=== PATIENT | male | born 1945 | race Caucasian/White ===

== ENCOUNTER → 2016-06-20 | Outpatient (CLI) | payer MEDICARE, OTHER ==
[~2016-06-20] MED LIST: ADVAIR 250-501 EACH IH; ALBUTEROL 0.5ML INH; ALBUTEROL17 GM INH; ALTOPREV40 MG PO; ATENOLOL25 MG PO; AZITHROMYCIN250 MG PO; BAYER ASPIRIN325 M1 PO; COATED ASPIRIN325 M1 PO; COMBIVENT MININEB INH; COMBIVENT U/D3 M2 INH; DALIRESP500 MCG PO; DOXYCYCLINE HY100 M3 PO; FAMOTIDINE PO; IMDUR-ER60 M1 PO; LEVAQUIN PO; LISINOPRIL5 MG PO; MEVACOR PO; NITROGYLCERIN SUBLINGUAL; PREDNISONE PO; PREDNISONE10 MG PO; PRINIVIL5 MG PO; PROAIR HFA8.5 GM IH; PROAIR HFA8.5 GM INH; SPIRIVA18 MCG INH; SYMBICORT INH; SYNTHROID0.1 MG PO; TENORMIN25 M1 PO; THIAMINE HCL100 M1 PO; VIBRAMYCIN100 M1 PO; ZESTRIL5 MG PO; ZITHROMAX PO
--- NOTE | ~2016-06-20 | MR113 ---
[facility] A Service of [facility] & [facility] RADIOLOGY TEXT RESULTS PATIENT: VIVIENNE DOWNEY LOCATION: [facility] : 47 UNIT #: [id number] AGE: [address]: Quique Lainez MD SEX: M ORDER DR: [id number] [facility] [address] [place], [place] [address] [id number] O MR#: [id number] Acc #: [id number] NAME: VIVIENNE DOWNEY. : 1945 SEX: M STUDY DATE/TIME: 06/20/2016 11:27 UNIT: [facility] ROOM: STUDY DESCRIPTION: MR Lumbar Wo Contrast Attending Physician: Quique Lainez M.D. Referring Physician: Quique Lainez M.D. Ordering Physician: Quique Lainez M.D. Primary Care Physician: Aurora Amezcua A.P.R.N. MRI CENTER REPORT This report is preliminary unless electronic signature is present. EXAM Lumbar spine MRI without HISTORY Patient has had a few falls in the past couple of months. Complains of bilateral hip pain, leg pain and numbness. No prior surgery. COMMENT MRI of the lumbar spine performed without contrast using routine 1.5-T imaging technique. Mild lower lumbar levoconvex upper lumbar dextroconvex scoliosis. Discs are desiccated in general, and there is multilevel loss of intervertebral disc height, most severe at the L3-L4 level. Marrow endplate degenerative changes most severe also at the L3-L4 level, where they are mixed. Multilevel Schmorl node formation most apparent lower thoracic to upper lumbar spine, and partly seen is anterior wedging of T12. The conus medullaris terminates at upper L2 and is normal. At L1-L2, mild facet degenerative change bilaterally, concentric disc bulge with a superimposed broad posterior desiccated protrusion. Mild effacement of the anterior thecal sac right greater than left, but no significant central canal stenosis. Mild mass effect on the right lateral recess. Mild right inferior foraminal narrowing. At L2-L3, there is mild facet degenerative change bilaterally. Mild broad-based posterior disc bulge more prominent right paramedian to posterolateral location. Mild mass effect on the right lateral recess and anterior thecal sac, but no central canal stenosis. Mild foraminal narrowing bilaterally. At L3-L4, there is moderate facet degenerative change bilaterally, with concentric desiccated disc osteophyte complex. There is mild central STS. [facility] A Service of [facility] & [facility] RADIOLOGY TEXT RESULTS PATIENT: VIVIENNE DOWNEY LOCATION: [facility] : 47 UNIT #: [id number] AGE: [address]: Quique Lainez MD SEX: M ORDER DR: canal stenosis and mass effect on the left greater than right lateral recess. There is approximately moderate left inferior foraminal narrowing. At L4-L5, mild to moderate facet degenerative change bilaterally with some ligamentum flavum thickening. There is a broad-based posterior protrusion with more focal components left paramedian to posterolateral and right posterolateral locations. Mild central canal stenosis with mass effect on the left greater than right lateral recess. Mild to moderate left-sided foraminal narrowing. L5-S1, mild to moderate left, moderate right-sided facet degenerative change, ligamentum flavum thickening with broad-based posterior disc bulge, very mild central canal stenosis and mass effect on the right lateral recess. There is moderate to severe right-sided foraminal narrowing. Mild left-sided foraminal narrowing. Loss of disc height contributes to the right foraminal impingement. I believe this patient has multiple renal cysts which are incompletely seen and characterized, and I would suggest correlation with a renal ultrasound for further assessment. IMPRESSION 1. Multilevel lumbar degenerative changes are detailed above. Canal stenosis present at multiple levels, mild. Foraminal impingement present at multiple levels, most severe on the right side at L5-S1. Please refer to the [id number] description and correlate with symptoms. Chronic mild anterior wedging is likely at T12. Lower lumbar levoconvex upper lumbar dextroconvex scoliosis noted, relatively mild. 2. Partly seen probable renal cyst but I would recommend correlation with renal ultrasound since they are poorly characterized on the MRI. Dictated by... Emily Bear M.D. THIS IS AN ELECTRONICALLY VERIFIED REPORT Emiyl Bear M.D. at 06/22/2016 8:19 AM Shashank TD: 06/21/2016 19:03 JOB #: [id number] MRI CENTER REPORT Page 1 of 1 COPY
== END | disposition home or self-care (01) ==
LOC: CMRI 10:44
DX: M51.36 Other intervertebral disc degeneration, lumbar region (principal); R26.9 Unspecified abnormalities of gait and mobility; R20.0 Anesthesia of skin; M47.816 Spondylosis without myelopathy or radiculopathy, lumbar region; M48.06 Spinal stenosis, lumbar region; M41.9 Scoliosis, unspecified
CPT/HCPCS: 72148

== ENCOUNTER → 2016-07-05 | Outpatient (CLI) | payer MEDICARE, OTHER ==
--- NOTE | ~2016-07-05 | US77 ---
[facility] A Service of [facility] RADIOLOGY TEXT RESULTS PATIENT: VIVIENNE DOWNEY LOCATION: [facility] : 47 UNIT #: [id number] AGE: [address]: Aurora Amezcua APRN SEX: M ORDER DR: [id number] [facility] [address] [place], [place] [address] [id number] O MR#: [id number] Acc #: [id number] NAME: VIVIENNE DOWNEY : 1945 SEX: M STUDY DATE/TIME: 07/05/2016 14:32 UNIT: US ROOM: STUDY DESCRIPTION: US Kidney Bilateral Complete Attending Physician: Aurora Amezcua A.P.R.N. Ordering Physician: Aurora Amezcua A.P.R.N. Primary Care Physician: Aurora Amezcua A.P.R.N. MEDICAL IMAGING REPORT This report is preliminary unless electronic signature is present EXAM Renal ultrasound INDICATIONS Probable renal cyst on the recent lumbar spine MRI. Further characterization. TECHNIQUE Etienne-scale and Doppler imaging of the kidneys and bladder. COMPARISON STUDIES MRI lumbar spine from 06/20/2016. FINDINGS Right kidney measures 11.9 cm. There is a hypoechoic region in the right kidney. This measures approximately 2.6 cm. It cannot be characterized as a benign simple cyst on this ultrasound. Left kidney measures 11.7 cm in length. There is a 1.7 cm cyst in the left kidney. No hydronephrosis. Unremarkable bladder. IMPRESSION 1. Left renal cyst. 2. Indeterminate 2.6 cm hypoechoic lesion in the right kidney. Recommend evaluation with either MRI or CT with renal protocol. Dictated by... Adam Solano M.D. THIS IS AN ELECTRONICALLY VERIFIED REPORT Adam Solano M.D. at 07/06/2016 7:02 AM EED/pcl [facility] A Service of [facility] RADIOLOGY TEXT RESULTS PATIENT: VIVIENNE DOWNEY LOCATION: [facility] : 47 UNIT #: [id number] AGE: [address]: Aurora Amezcua APRN SEX: M ORDER DR: TD: 07/05/2016 21:36 JOB #: [id number] MEDICAL IMAGING REPORT Page 1 of 1 COPY
== END | disposition home or self-care (01) ==
LOC: CGUS 13:27
DX: N28.1 Cyst of kidney, acquired (principal)
CPT/HCPCS: 76770

== ENCOUNTER → 2016-07-16 | Outpatient (CLI) | payer MEDICARE, OTHER ==
--- NOTE | ~2016-07-16 | MR2 ---
[facility] A Service of [facility] RADIOLOGY TEXT RESULTS PATIENT: VIVIENNE DOWNEY LOCATION: [facility] : 47 UNIT #: [id number] AGE: [address]: Aurora Amezcua APRN SEX: M ORDER DR: [id number] [facility] [address] [place], [place] [address] [id number] O MR#: [id number] Acc #: [id number] NAME: VIVIENNE DOWNEY : 1945 SEX: M STUDY DATE/TIME: 07/16/2016 14:11 UNIT: [facility] ROOM: STUDY DESCRIPTION: MR Abdomen WWo Cont Attending Physician: Aurora Amezcua A.P.R.N. Referring Physician: Aurora Amezcua A.P.R.N. Ordering Physician: Aurora Amezcua A.P.R.N. Primary Care Physician: Aurora Amezcua A.P.R.N. MRI CENTER REPORT This report is preliminary unless electronic signature is present. EXAM MRI abdomen with and without contrast INDICATIONS Indeterminate renal lesions on previous lumbar spine MRI and renal ultrasound. Observation for renal mass. PROCEDURE Multiplanar, multisequence MR imaging of the abdomen prior to and following 12 mL of MultiHance COMPARISON Lumbar spine MRI from 06/20/2016 renal ultrasound 07/05/2016 FINDINGS Abdomen without contrast: The liver has normal size and morphology. There are a few tiny scattered cysts in the liver. The spleen adrenal glands pancreas gallbladder bowel loops have normal signal. Abdomen with contrast: There are several cysts scattered in the left kidney including a few benign proteinaceous or hemorrhagic cysts largest measuring 2.1 cm. There is no enhancing renal mass. There is no right renal mass. IMPRESSION Benign cysts in the left kidney. No enhancing renal mass. Dictated by... Adam Solano M.D. THIS IS AN ELECTRONICALLY VERIFIED REPORT Adam Solano M.D. at 07/18/2016 7:[address] [facility] A Service of [facility] RADIOLOGY TEXT RESULTS PATIENT: VIVIENNE DOWNEY LOCATION: [facility] : 47 UNIT #: [id number] AGE: [address]: Aurora Amezcua APRN SEX: M ORDER DR: Mita TD: 07/17/2016 13:31 JOB #: [id number] MRI CENTER REPORT Page 1 of 1 COPY
[2016-07-16 15:51] LABS: POC - CREATININE 0.57 mg/dL (0.64-1.27); POC - GFR >60.0 mL/min (>60)
== END | disposition home or self-care (01) ==
LOC: CMRI 13:39
PROVIDERS: Nurse Practitioner
DX: N28.89 Other specified disorders of kidney and ureter (principal); Q61.02 Congenital multiple renal cysts
CPT/HCPCS: 74183; 82565; A9577

== ENCOUNTER 2016-08-10 13:14 | Emergency (ER) | payer MEDICARE, OTHER ==
--- NOTE | ~2016-08-10 | EKG ---
PATIENT: VIVIENNE DOWNEY UNIT #: [id number] Ventricular Rate: 80 BPM Atrial Rate: 80 BPM P-R Interval: 152 ms QRS Duration: 84 ms Q-T Interval: 362 ms QTC Calculation(Bezet): 417 ms P Butler: 86 degrees Calculated R Butler: 78 degrees Calculated T Butler: 65 degrees Diagnosis Line: Normal sinus rhythm Diagnosis Line: Normal ECG Diagnosis Line: When compared with ECG of 30-AUG-2015 10:43, Diagnosis Line: No significant change was found Diagnosis Line: Confirmed by ZHANG BENSON MD ([id number]) on Diagnosis Line: 08/12/2016 10:41:32 AM INTERPRETING MD: DAYNA
--- NOTE | ~2016-08-10 | CR72 ---
[facility] A Service of [facility] & [facility] RADIOLOGY TEXT RESULTS PATIENT: VIVIENNE DOWNEY LOCATION: [facility] : 47 UNIT #: [id number] AGE: [address]: Yariel Gonzalez MD SEX: M ORDER DR: [id number] [facility] [address] [place], [place] [address] [id number] E MR#: [id number] Acc #: [id number] NAME: VIVIENNE DOWNEY : 1945 SEX: M STUDY DATE/TIME: 08/10/2016 16:13 UNIT: [facility] ROOM: STUDY DESCRIPTION: CR Chest Single View Portable Attending Physician: Yariel Gonzalez M.D. Ordering Physician: Yariel Gonzalez M.D. Primary Care Physician: Aurora Amezcua A.P.R.N. MEDICAL IMAGING REPORT This report is preliminary unless electronic signature is present EXAM Portable chest x-ray, 08/10/2016 HISTORY Dyspnea. Short of air, cough, congestion, 1.5 weeks. FINDINGS AP radiograph of the chest is presented. Comparison 08/30/2015. FINDINGS Heart normal in size. Lungs show marked hyperinflation suggesting underlying emphysema. There is no evidence of acute infectious or inflammatory disease, pleural effusion or pneumothorax. No suspicious nodule. Stable dextroscoliosis of the thoracic spine. Stable appearance of old left rib fractures. No clearly acute bony abnormality. Dictated by... Fan Ng M.D. THIS IS AN ELECTRONICALLY VERIFIED REPORT Fan Ng M.D. at 08/15/2016 10:15 AM Navarro TD: 08/10/2016 21:33 JOB #: [id number] MEDICAL IMAGING REPORT Page 1 of 1 COPY
[2016-08-10 14:34] LABS: BASOPHIL# 0.1 X10e3 (0-0.3); BASOPHIL% 1.2 % (0-2.5); DIFF IND NO; EOSINOPHIL# 0.9 X10e3 (0-0.7); EOSINOPHIL% 8.7 % (0.0-7.0); HEMATOCRIT 35.1 % (38.0-50.0); HEMOGLOBIN 11.8 gm/dL (13.0-16.0); LYMPHOCYTE# 2.3 X10e3 (1.0-3.5); LYMPHOCYTE% 22.2 % (17.0-45.0); MEAN CELL VOLUME 99.2 FL (83-96); MEAN CORPUSCULAR HEMOGLOBIN 33.2 PG (28-34); MEAN CORPUSCULAR HGB CONC 33.4 g/dL (30-36); MEAN PLATELET VOLUME 6.9 FL (6.5-11.5); MONOCYTE# 1.2 X10e3 (0-1.0); MONOCYTE% 11.2 % (3.0-12.0); NEUTROPHIL# 5.9 X10e3 (1.5-7.1); NEUTROPHIL% 56.7 % (40-75); PLATELET COUNT 424 X10e3 (140-420); RED BLOOD COUNT 3.54 X10e (3.90-5.60); RED CELL DISTRIBUTION WIDTH 13.3 % (11.0-15.5); WHITE BLOOD COUNT 10.4 X10e3 (4.0-10.5)
[2016-08-10 15:00] LABS: POC - CKMB 1.9 ng/mL (0.0-7.9); POC - TROPONIN <0.05 ng/mL (<=0.05)
[2016-08-10 15:01] LABS: ALBUMIN SERUM 3.9 g/dL (3.5-5.0); ALKALINE PHOSPHATASE 79 U/L (32-92); ALT (SGPT) 12 U/L (10-40); AST (SGOT) 18 U/L (10-42); BILIRUBIN,TOTAL 0.4 mg/dL (0.2-2.0); BLOOD UREA NITROGEN 5 mg/dL (9-23); CALCIUM SERUM 9.1 mg/dL (8.4-10.2); CARBON DIOXIDE 29 mmol/L (22-31); CHLORIDE 91 mmol/L (100-111); CREATININE SERUM 0.4 mg/dL (0.6-1.4); GLOM FILT RATE Estimated 122.1 mL/min (>60); GLUCOSE FASTING 92 mg/dL (70-110); POTASSIUM 4.3 mmol/L (3.5-5.1); PROTEIN TOTAL SERUM 6.6 g/dL (6.0-8.3); SODIUM 127 mmol/L (135-145)
[2016-08-10 15:02] LABS: BILIRUBIN, DIRECT <0.1 mg/dL (0.0-0.2); BILIRUBIN,INDIRECT 0.3 mg/dL (0.0-0.9)
[2016-08-10 16:47] LABS: POC - CKMB 1.6 ng/mL (0.0-7.9); POC - TROPONIN <0.05 ng/mL (<=0.05)
== END 2016-08-10 17:32 | disposition home or self-care (01) ==
LOC: CED 13:14
PROVIDERS: Emergency Medicine
DX: J44.9 Chronic obstructive pulmonary disease, unspecified (principal); I50.9 Heart failure, unspecified; I25.2 Old myocardial infarction; F17.200 Nicotine dependence, unspecified, uncomplicated; Z79.82 Long term (current) use of aspirin; Z79.899 Other long term (current) drug therapy
CPT/HCPCS: 36415; 71010; 80048; 80076; 82553; 83880; 84484; 85025; 93005; 96374; 99285; J2930